=== PATIENT | male | born 1935 | race Caucasian/White ===

== ENCOUNTER → 2017-02-23 | Outpatient (CLI) | payer MEDICARE, BC ==
[2017-02-23 10:40] LABS: CH 33.4; CHCM 33.2; HCT 41.7 % (39.0-53.0); MCH 33.9 pg (25.0-35.0); MCHC 33.5 g/dL (31.0-37.0); MCV 101.2 fL (80.0-100.0); Mean Platelet Volume 7.2; RBC 4.12 m/uL (4.30-5.90); WBC 4.7 k/uL (3.8-10.6)
--- NOTE | 2017-02-23 10:41 | XR ---
EXAMINATION TYPE: XR chest 2V DATE OF EXAM: 02/23/2017 COMPARISON: NONE TECHNIQUE: PA and lateral views submitted. HISTORY: Wellness check, dysrhythmia FINDINGS: The lungs are clear and there is no pneumothorax, pleural effusion, or focal pneumonia. 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 Atherosclerotic change aorta and degenerative change spine. Hyperinflation suggests COPD. Borderline cardiomegaly. No overt failure. IMPRESSION: 1. Correlate for COPD 2. Borderline cardiomegaly.
[2017-02-23 10:43] LABS: Appearance,Urine Clear (Clear); Bilirubin,Urine Negative (Negative); Glucose,Urine (UA) Negative (Negative); Ketones,Urine Negative (Negative); Leukocyte Esterase,Urine Negative (Negative); Nitrite,Urine Negative (Negative); Protein,Urine Negative (Negative); Specific Gravity,Urine 1.013 (1.001-1.035); UA Billing (MACRO vs. MICRO) CHEM; Urobilinogen,Urine <2.0 mg/dL (<2.0)
[2017-02-23 11:58] LABS: Hemoglobin A1C 5.5 % (4.2-6.1)
[2017-02-23 12:33] LABS: ALT 44 U/L (21-72); AST 29 U/L (17-59); Alkaline Phosphatase 74 U/L (38-126); Anion Gap 9 mmol/L; Blood Urea Nitrogen 19 mg/dL (9-20); Calcium 9.5 mg/dL (8.4-10.2); Carbon Dioxide 27 mmol/L (22-30); Chloride 104 mmol/L (98-107); Cholesterol 97 mg/dL (<200); Glucose 112 mg/dL (74-99); HDL Cholesterol 44 mg/dL (40-60); Non-African American GFR(MDRD) >60 (>60 ml/min/1.73 sqM); Potassium 4.8 mmol/L (3.5-5.1); Sodium 140 mmol/L (137-145); Total Bilirubin 0.9 mg/dL (0.2-1.3); Total Protein 6.5 g/dL (6.3-8.2); Uric Acid 8.4 mg/dL (3.5-8.5)
[2017-02-23 12:59] LABS: Prostate Specific Antigen 0.94 ng/mL (0.00-4.00)
== END | disposition home or self-care (01) ==
LOC: LABWHC1 10:12
PROVIDERS: ATTEND Internal Medicine
DX: I11.9 Hypertensive heart disease without heart failure (principal); E78.2 Mixed hyperlipidemia; I25.10 Atherosclerotic heart disease of native coronary artery without angina pectoris; N40.0 Benign prostatic hyperplasia without lower urinary tract symptoms; K21.0 Gastro-esophageal reflux disease with esophagitis; M10.9 Gout, unspecified; R73.9 Hyperglycemia, unspecified; Z00.00 Encounter for general adult medical examination without abnormal findings
CPT/HCPCS: 36415; 71020; 80053; 80061; 81003; 82272; 83036; 84153; 84439; 84443; 84550; 85027

== ENCOUNTER → 2017-11-21 | Outpatient (CLI) | payer MEDICARE, BC ==
[2017-11-21 13:41] LABS: ALT 36 U/L (21-72); AST 32 U/L (17-59); Alkaline Phosphatase 75 U/L (38-126); Creatine Kinase 177 U/L (55-170)
== END | disposition home or self-care (01) ==
LOC: LABWHC1 13:01
PROVIDERS: ATTEND Internal Medicine
DX: R94.5 Abnormal results of liver function studies (principal); R74.9 Abnormal serum enzyme level, unspecified
CPT/HCPCS: 36415; 82550; 84075; 84450; 84460

== ENCOUNTER → 2018-07-24 | Outpatient (CLI) | payer MEDICARE, BC ==
[2018-07-24 17:49] LABS: ALT 22 U/L (10-49); AST 28 U/L (14-35); Alkaline Phosphatase 66 U/L (41-126)
== END ==
LOC: LABWHC1 11:07
PROVIDERS: ATTEND Internal Medicine
DX: R74.9 Abnormal serum enzyme level, unspecified (principal)
CPT/HCPCS: 36415; 84075; 84450; 84460

== ENCOUNTER → 2018-10-10 | Outpatient (CLI) | payer MEDICARE, BC ==
[2018-10-10 11:37] LABS: HCT 43.6 % (39.0-53.0); HGB 14.2 gm/dL (13.0-17.5); MCH 32.9 pg (25.0-35.0); MCHC 32.4 g/dL (31.0-37.0); MCV 101.6 fL (80.0-100.0); Macrocytosis Slight; Mean Platelet Volume 7.7; Platelet Count 182 k/uL (150-450); RDW 14.3 % (11.5-15.5); WBC 4.9 k/uL (3.8-10.6)
[2018-10-10 16:58] LABS: Albumin 4.6 g/dL (3.80-4.90); Albumin/Globulin Ratio 2.3 (1.60-3.17); Anion Gap 8.8 mmol/L (4.00-12.00); Calcium 9.9 mg/dL (8.7-10.3); Carbon Dioxide 28.2 mmol/L (21.6-31.8); Potassium 4.6 mmol/L (3.5-5.5); Total Protein 6.6 g/dL (6.2-8.2)
[2018-10-10 17:06] LABS: T4, Free (Free Thyroxine) 1.1 ng/dL (0.80-1.80)
[2018-10-10 18:07] LABS: Hemoglobin A1C 5.6 % (4.0-6.0)
== END ==
LOC: LABWHC1 10:50
PROVIDERS: ATTEND Internal Medicine
DX: Z00.00 Encounter for general adult medical examination without abnormal findings (principal); I25.10 Atherosclerotic heart disease of native coronary artery without angina pectoris; K21.0 Gastro-esophageal reflux disease with esophagitis; N40.0 Benign prostatic hyperplasia without lower urinary tract symptoms; E78.2 Mixed hyperlipidemia; R73.9 Hyperglycemia, unspecified
CPT/HCPCS: 36415; 80053; 80061; 82272; 83036; 84153; 84439; 84443; 85027

== ENCOUNTER → 2019-04-23 | Outpatient (CLI) | payer MEDICARE, BC | END | disposition home or self-care (01) | LOC: LABPAT 14:16 | PROVIDERS: ATTEND Internal Medicine | DX: Z01.812 Encounter for preprocedural laboratory examination (principal) | CPT/HCPCS: 87070 ==

== ENCOUNTER 2019-05-08 10:58 | Inpatient (IN) | payer MEDICARE, BC ==
[2019-05-03 14:56] VITALS: BMI 27.3
[~2019-05-08 10:58] MED LIST: ACETAMINOPHEN TAB 500 MG TAB PO ONE; GABAPENTIN 300 MG CAP PO ONE; HYDROmorphone 0.5 MG/0.5 ML SYRINGE IVP PRN; LACTATED RINGERS 1,000 ML IV SCH; LIDOCAINE 1% 20 ML VIAL (10MG/ML) FOR IV START INTRADERMA PRN; MELOXICAM 7.5 MG TAB PO ONE; ONDANSETRON 4 MG/2 ML VIAL IVP ONE; ROPIVACAINE 246.25 MG, EPINEPHrine 0.5 MG, KETOROLAC 30 MG, cloNIDine HCL/PF 80 MCG, WA... MISCELLANE ONE; TRANEXAMIC ACID 1,000 MG in SODIUM CHLORIDE 0.9% 100 ML IVPB ONE
[2019-05-08] MEDS ORDERED: LACTATED RINGERS 1,000 ML IV ONE ×2 (11:48→14:18)
[2019-05-08] MEDS ORDERED: DEXAMETHASONE SOD PHOSPHATE 10 MG/ML 1 ML VIAL IV ONE (12:00)
[2019-05-08 12:02] LABS: INR 1.1 (<1.2); Prothrombin Time 11.2 sec (9.0-12.0)
[2019-05-08] MEDS ORDERED: TRANEXAMIC ACID 1,000 MG/10 ML VIAL ONE (12:25)
[2019-05-08] MEDS ORDERED: GLYCOPYRROLATE 0.2 MG/ML 2 ML VIAL ONE (12:25)
[2019-05-08] MEDS ORDERED: LIDOCAINE 1% INJ 10MG/ML (20 ML MDV) ONE (12:25)
[2019-05-08] MEDS ORDERED: MORPHINE SULFATE (PF) 0.3 MG/0.3 ML SYR ONE (12:25)
[2019-05-08] MEDS ORDERED: ePHEDrine SULFATE/0.9% NACL/PF 50 MG/5 ML SYRINGE IV ONE (12:25)
[2019-05-08] MEDS ORDERED: SODIUM CHLORIDE 0.9% 100 ML BAG ONE (12:25)
[2019-05-08] MEDS ORDERED: MIDAZOLAM 2 MG/2 ML VIAL ONE (12:25)
[2019-05-08] MEDS ORDERED: fentaNYL (PF) 50 MCG/ML 2 ML AMP ONE (12:25)
[2019-05-08] MEDS ORDERED: PROPOFOL 10 MG/ML 20 ML VIAL IV ONE (12:25)
[2019-05-08] MEDS ORDERED: traMADol 50 MG TAB PO PRN (12:38)
[2019-05-08] MEDS ORDERED: NA PHOS,M-B/NA PHOS,DI-BA 133 ML ENEMA RECTAL PRN (12:38)
[2019-05-08] MEDS ORDERED: HYDROcodone/APAP 5-325MG 1 EACH TAB PO PRN (12:38)
[2019-05-08] MEDS ORDERED: MAGNESIUM HYDROXIDE 2,400 MG/10 ML CUP PO PRN (12:38)
[2019-05-08] MEDS ORDERED: DIAZEPAM 5 MG TAB PO PRN (12:38)
[2019-05-08] MEDS ORDERED: TEMAZEPAM 15 MG CAP PO PRN (12:38)
[2019-05-08] MEDS ORDERED: hydrOXYzine PAMOATE 25 MG CAP PO PRN (12:38)
[2019-05-08] MEDS ORDERED: ONDANSETRON 4 MG/2 ML VIAL IVP PRN (12:38)
[2019-05-08] MEDS ORDERED: HYDROmorphone 0.5 MG/0.5 ML SYRINGE IVP PRN ×3 (12:38)
[2019-05-08] MEDS ORDERED: HYDROcodone/APAP 10-325MG 1 EACH TAB PO PRN (12:38)
[2019-05-08] MEDS ORDERED: BISACODYL 10 MG SUPP RECTAL PRN (12:38)
[2019-05-08] MEDS ORDERED: NALOXONE 0.4 MG/ML 1 ML VIAL IV PRN ×2 (12:38→15:09)
[2019-05-08] MEDS ORDERED: ceFAZolin 3,000 MG in SODIUM CHLORIDE 0.9% IRRIGATIO 3,000 ML IRRIGATION ONE (13:13)
--- NOTE | 2019-05-08 15:03 | XR ---
EXAMINATION TYPE: XR knee limited LT DATE OF EXAM: 05/08/2019 CLINICAL HISTORY: Left knee pain and arthritis status post total knee replacement. TECHNIQUE: Portable AP and crosstable lateral views of the left knee are obtained immediately postop eratively. COMPARISON: None FINDINGS: Metallic hardware from total left knee arthroplasty is seen and appears satisfactory in al ignment and position. There is evidence of recent surgery with diffuse soft tissue swelling and subc utaneous emphysema noted. IMPRESSION: METALLIC HARDWARE FROM TOTAL LEFT KNEE ARTHROPLASTY IS SATISFACTORY IN ALIGNMENT.
[2019-05-08] MEDS: LACTATED RINGERS 1,000 ML IV SCH (15:55)
[2019-05-08 17:07] LABS: Albumin 3.9 g/dL (3.5-5.0); Calcium 9.3 mg/dL (8.4-10.2); Potassium 5.2 mmol/L (3.5-5.1); Total Bilirubin 0.8 mg/dL (0.2-1.3); Total Protein 6.5 g/dL (6.3-8.2)
[2019-05-08 17:08] LABS: Basophils % (A) 0 %; Eosinophils % (A) 0 %; HCT 42.1 % (39.0-53.0); HGB 13.4 gm/dL (13.0-17.5); Lymphocytes # (A) 0.5 k/uL (1.0-4.8); Lymphocytes % (A) 11 %; MCH 32.7 pg (25.0-35.0); MCHC 31.7 g/dL (31.0-37.0); MCV 103.1 fL (80.0-100.0); Macrocytosis Slight; Mean Platelet Volume 7.4; Monocytes # (A) 0.1 k/uL (0-1.0); Monocytes % (A) 3 %; Neutrophils % (A) 85 %; Platelet Count 159 k/uL (150-450); RBC 4.09 m/uL (4.30-5.90); RDW 12.9 % (11.5-15.5); WBC 4.8 k/uL (3.8-10.6)
--- NOTE | 2019-05-08 20:59 | OP ---
OPERATIVE REPORT PROCEDURE: 05/08/2019 SURGEON: Zuhair Dailey M.D. JAVA XML DEVELOPER: Elton BEVERLY. PREOPERATIVE DIAGNOSIS: Left knee osteoarthrosis. POSTOP DIAGNOSIS: Left knee osteoarthrosis. OPERATION PERFORMED: Left total knee arthroplasty. ANESTHESIA: Spinal with sedation. ESTIMATED BLOOD LOSS: 100 mL. TOURNIQUET TIME: 50 minutes at 250 mmHg. COMPLICATIONS: None apparent. DRAINS: None. DISPOSITION: Postanesthesia care unit. 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 History and physical examination are consistent with advanced left knee osteoarthrosis. He has been through significant nonoperative management up to this point. Further treatment options were discussed and he decided to go forward with a left total knee arthroplasty. The risks of procedure were discussed with him in detail. These risks include, but are not limited to risk of infection, nerve damage, bleeding, pain, and a small risk of deep vein thrombosis which could lead to fatal pulmonary embolism. There is also risk of loosening of the implant which could require revision operation. The patient understands these risks. All of his questions were answered to his satisfaction. An appropriate informed consent was obtained. DESCRIPTION OF PROCEDURE: The patient was identified in the preoperative holding area. Surgical site was marked by both the patient and myself. He was given 2 g of Ancef IV for prophylactic purposes. He was then transferred to the operative suite. He was placed supine on the operative table. Spinal anesthetic was then administered and dosed per the anesthesia without apparent complication. Examination under anesthesia was then performed. The patient was 2-3 degrees shy of full extension. He had 100 degrees of flexion. The medial collateral ligament, lateral collateral ligament and posterior cruciate ligaments were stable. Tourniquet was then placed high on the left upper thigh, well-padded in preparation. REASON FOR SURGERY: The patient's left lower extremity was then prepped and draped in usual sterile fashion. Standard surgical pause was undertaken to ensure that we were operating on the correct site and that appropriate preoperative antibiotics were given. All staff in the room in agreement and we proceeded. The outlines of the patella were marked with a surgical pen. A planned 12 cm vertical incision centered over the patella was marked surgical pen. Leg was then exsanguinated with an Esmarch dressing. The knee was then flexed and the tourniquet was inflated to 250 mmHg. Total tourniquet time for the procedure was 50 minutes. Incision was then made with a 10 blade scalpel. Dissection carried down sharply to the overlying fascia. Great care was taken to minimize the skin flaps. The knee was then exposed using a standard medial parapatellar approach. A small cuff of quadriceps tendon was then left for suturing. He was in a bit of varus preoperatively. A standard medial release was then made. The superficial medial collateral ligament was dissected off the bone around the posterior aspect of the proximal tibia. The medial meniscus was then excised as well. The lateral meniscus was also released anteriorly. The leg was then externally rotated. The patella was everted. The knee was flexed. The retractors were then placed to protect the collateral ligaments. I then proceeded to remove the infrapatellar fat pad. This was excised sharply tangentially with the fibers of the patellar tendon. I then proceeded to remove peripheral osteophytes. This was done with a rongeur. I then proceeded with distal femoral resection. He did have a small flexion contracture. A planned 11 mm resection was then done. The femoral canal was then entered in the midline of the femur approximately 10 mm anterior to the origin of the posterior cruciate ligament. The eneida was then advanced down the center of the femur and placed intramedullary. Based on the preoperative radiographs, the angle between the anatomic and mechanical axis of the femur was approximately 4-5 degrees. The valgus angle of the distal femoral cutting guide was then set at 4 degrees for the left knee. The distal femoral cutting guide was then advanced over the intramedullary eneida. This was seated firmly against the femur. I then as mentioned planned to take 11 mm off the distal femur. The cutting block was then secured onto the femur with pins. The jig was then removed and the distal femoral cut was made through the slot of the block. The pins were then removed. The distal femoral cutting block was removed. The accuracy of the distal femoral cuts was checked with 2 flat bars. I then proceed to femoral sizing. Posterior referencing sizing guide was held firmly against the resected distal surface of the femur. The posterior condyles were resting on the posterior plane of the guide. The sizing stylus was then placed onto the anterior femur. The size was measured as a size 11. I then assessed for femoral rotation. Plan was for 3 degrees of external rotation. Three degrees of external rotation was placed onto the jig. These holes were then marked. I then confirmed the rotation by 3 separate methods. This was done using the epicondylar axis as well as Whitesides line and posterior referencing. It was deemed that the external rotation was proper. I then went forward, placed the femoral cutting block. This was placed over the previously placed pin holes. The Brody wing was then placed on the anterior slots to ensure that we would not notch the anterior femur with the anterior femoral cut. I then proceed with the anterior femoral cut. This was flush with the anterior cortex of the femur. Posterior cuts were then made followed by the anterior chamfer cut, then the posterior chamfer cut. The cutting block was then removed. Throughout the resection, the collateral ligaments were protected with retractors. I then placed a trial size 11 femur. It fit very nicely medial-lateral and fit flush with the distal end of the femur. The drill holes were then made. I then proceed with the tibial cut. I planned for cruciate retaining knee. The guide was placed and set for varus valgus and for slope. The height was set for approximate 2 mm resection from the medial tibial plateau which was the lower side. I was happy with the alignment and amount of resection. The cutting block was then pinned to the proximal tibia. The alignment eneida was removed. The proximal tibia was resected with a reciprocating saw. Again this was done with retractors protecting the collateral ligaments as well as the posterior cruciate ligament. I then proceeded to evaluate the flexion and extension gaps. A 10 mm block was then placed. The flexion-extension gaps were equal. I then proceed resection of posterior osteophytes. He had very minimal posterior osteophytes. This was done using a curved osteotome. This resected the posterior osteophytes and posterior capsule stripping was also done off the posterior aspect of osteophytes were then removed. I then proceeded with resection of patella. The thickness of patella was measured using a caliper. The thickness was 22 mm. The thickness of the anticipated patellar dome was taken into account. The resection was then performed and confirmed to be equal in 4 quadrants using a caliper. Approximately 14 mm of bone remained after resection. A 35 x 9 mm standard patellar trial was then placed. The holes were drilled. The trial was then placed. I then proceeded with sizing tibial plate. A size G tibial plate fit very nicely. I then placed the trial femur, the tibial tray and patellar button. A 10 mm trial tibial insert was also placed. The components fit very nicely. He had full extension and flexion. The extension and flexion gaps were equal and stable to both varus and valgus stress. The patella tracked appropriately. The tibial tray rotation was marked with a Bovie. This was externally rotated properly. I then proceeded with tibial preparation. I first drilled the femoral holes. Removed the femoral component. The tibial tray was then set for proper external rotation as well as mediolateral placement onto the tibia. It was then pinned into place. I then proceeded with punching the keel. I then decided to proceed with cementing of all our components. The knee was thoroughly irrigated with sterile saline solution via pulse lavage. The lateral geniculate artery was identified and cauterized. All blood was removed from the bone of the tibia femur and patella with pulse lavage. I then proceed with cementing. Two packs of antibiotic bone cement was prepared on the back table by the neurosurgical physician assistant. I then proceed with cementing the tibia first. The cement was impacted in the keel as well as deeply seated in the bone. A second coat cement was then placed. The tibia was then impacted into place. Excess cement was removed with Imbler's and Joker's. I then proceed with cementing the femoral component. The femoral component was also cemented using standard technique. Excess cement was removed. A 10 mm trial insert was then placed into the knee. It was brought into full extension with a constant axial load placed until the cement had hardened. The patellar component was then cemented. This was held firmly with a compressive device until the cement had dried. When the cement had dried, the knee was taken out of extension. All excess cement was removed from around the prosthesis. I then trialed the knee with a 10 mm insert. Flexion extension gaps were appropriate. I then trialed with a 12 mm insert. The flexion-extension gaps felt much better. The knee was stable with a 12 mm insert. Came into full extension. I decided to go forward with a 12 mm cross-linked cruciate- retaining tibial insert. Polyethylene was then placed onto the tibial tray and locked into place. The knee was then reduced. The knee was again further irrigated with sterile saline solution with antibiotic added. The tourniquet was then deflated. The total tourniquet time for the procedure was 50 minutes at 250 mmHg. Final components were Rene Persona size 11 cruciate-retaining femoral component, a size G tibial tray, a 12 mm medial congruent cruciate-retaining polyethylene insert and a 35 x 9 mm patella. I then proceeded with closure. Again, the knee was thoroughly irrigated. The quadriceps tendon and medial retinaculum were reapproximated with #2 Ethibond suture. The extensor mechanism was then closed with a running #2 Quill suture. Subcutaneous tissues were closed with 2-0 Vicryl interrupted suture. The skin was closed with a running 3-0 Quill suture. Dermabond was applied to the incision. Sterile compressive dressing was then applied. All sponge and needle counts were deemed correct prior to closure. The patient tolerated procedure without apparent complication. He was transferred to the recovery room in stable condition. MMANETA / MARIA LUISAN: [id number] /
[2019-05-08] MEDS ORDERED: ENALAPRIL 2.5 MG PO SCH (21:00)
[2019-05-08] MEDS: ATORVASTATIN 40 MG TAB PO SCH (21:45)
[2019-05-08] MEDS: ALLOPURINOL 300 MG TAB PO SCH (21:45)
[2019-05-08] MEDS: ASPIRIN 325 MG TAB PO SCH (21:45)
[2019-05-08] MEDS: SENNOSIDES-DOCUSATE SODIUM 1 EACH TAB PO SCH (21:51)
[2019-05-09] MEDS: LACTATED RINGERS 1,000 ML IV SCH ×2 (04:14→17:34)
--- NOTE | 2019-05-09 07:07 | P.PN ---
Progress Note - Text Progress Note Date: 05/09/19 Patient was given intrathecal Duramorph on 05/08/2019 for left total knee re placement. This morning, vital signs are stable. The patient does endorse some urinary retention. The patient denies itching, nausea, vomiting, excessive sedation, respiratory depression, or headache. Patient also denies new-onset fever, weakness, or bowel/bladder incontinence. His pain score is: 0 Pain medications per primary service; please call back with any further questions. Eulalia Rbuio MD
[2019-05-09 07:31] LABS: Basophils % (A) 0 %; Eosinophils % (A) 0 %; HCT 40.1 % (39.0-53.0); Lymphocytes # (A) 1.4 k/uL (1.0-4.8); Lymphocytes % (A) 9 %; MCH 33.2 pg (25.0-35.0); MCHC 32.5 g/dL (31.0-37.0); Macrocytosis Slight; Mean Platelet Volume 7.5; Monocytes # (A) 0.7 k/uL (0-1.0); Monocytes % (A) 5 %; Neutrophils # (A) 12.4 k/uL (1.3-7.7); Neutrophils % (A) 84 %; Platelet Count 173 k/uL (150-450); RBC 3.93 m/uL (4.30-5.90); RDW 12.9 % (11.5-15.5); WBC 14.7 k/uL (3.8-10.6)
[2019-05-09] MEDS: ASPIRIN 325 MG TAB PO SCH ×2 (07:35→20:12)
[2019-05-09] MEDS: MULTIVITAMINS, THERA 1 EACH TAB PO SCH (07:35)
[2019-05-09 07:40] LABS: Albumin 3.9 g/dL (3.5-5.0); Calcium 9.4 mg/dL (8.4-10.2); Potassium 4.7 mmol/L (3.5-5.1); Total Protein 6.5 g/dL (6.3-8.2)
[2019-05-09] MEDS ORDERED: TAMSULOSIN 0.4 MG CAP.ER.24H PO STA (09:25)
--- NOTE | 2019-05-09 09:37 | P.DS ---
Providers Expected date of discharge: 05/09/19 Attending physician: Zuhair Dailey Consults: 05/08/19 12:38 Consult Physician Routine Consulting Provider: Sergo Rae Consult Reason/Comments: post op medical management Do you want consulting provider notified?: Yes Primary care physician: Reese Martinez Balboa - Discharge Diagnosis(es) (1) S/P total knee replacement Patient was admitted to the OR on 05/08/2019 to undergo a left total knee arthroplasty. He had failed conservative measures as an outpatient and desired to proceed with elective surgery after given informed consent. He underwent the above procedure which he tolerated well without complication. Postoperative hospital course has remained without complication. On day of discharge he is afebrile, vital signs stable, labs within acceptable ranges, tolerating by mouth meds and diet, voiding without difficulty, positive flatus, denies abdominal pain or calf pain, pain is controlled on oral pain medication and has no new complaints. Wound is benign, neurovascular status is intact, calf is soft and nontender, abdomen soft and nontender. Review of systems is negative for numbness, tingling, fever, chills, chest pain, shortness of breath, nausea, vomiting, dizziness, headaches, slurred speech or other. Current Visit: Yes Status: Acute Priority: Medium Procedures: Left TKA Patient Condition at Discharge: Good Plan - Discharge Summary Discharge Rx Participant: Yes New Discharge Prescriptions: New Aspirin 325 mg PO BID #60 tab Docusate [Colace] 100 mg PO BID #60 capsule HYDROcodone/APAP 7.5-325MG [[place] 7.5-325] 1 - 2 each PO Q6HR PRN #56 tab PRN Reason: Pain No Action Enalapril [Vasotec] 2.5 mg PO HS Aspirin 81 mg PO HS Atorvastatin [Lipitor] 40 mg PO HS Allopurinol [Zyloprim] 150 mg PO HS Discharge Medication List Allopurinol [Zyloprim] 150 mg PO HS 05/03/19 [History] Aspirin 81 mg PO HS 05/03/19 [History] Atorvastatin [Lipitor] 40 mg PO HS 05/03/19 [History] Enalapril [Vasotec] 2.5 mg PO HS 05/03/19 [History] Aspirin 325 mg PO BID #60 tab 05/09/19 [Rx] Docusate [Colace] 100 mg PO BID #60 capsule 05/09/19 [Rx] HYDROcodone/APAP 7.5-325MG [[place] 7.5-325] 1 - 2 each PO Q6HR PRN #56 tab 05/09/19 [Rx] Follow up Appointment(s)/Referral(s): Zuhair Dailey MD [STAFF PHYSICIAN] - 10 Days Activity/Diet/Wound Care/Special Instructions: Keep wound clean and dry Take meds as directed Follow-up with Dr. Dailey in office Weight bear as tolerated May shower in 3 days if no bleeding Discharge Disposition: HOME WITH HOME HEALTH SERVICES
[2019-05-09] MEDS: SODIUM CHLORIDE 0.9% 1,000 ML IV SCH (11:12)
--- NOTE | 2019-05-09 12:14 | P.CONS ---
History of Present Illness - Reason for Consult Consult date: 05/09/19 - History of Present Illness This is an 83-year-old male patient of Dr. Barrios. On 05/08/2019 patient underwent an elective left total knee arthroplasty after failing conservative measures as outpatient. This morning patient is sitting up at the bedside resting comfortably, denies any pain. He is ambulating with minimal assistance. Postoperatively, patient was noted to have asymptomatic bradycardia in the 30s, however, overnight heart rate has been within normal limits 60s to 90s. Patient reports having known heart block in which he follows up with Dr. Murphy. No dizziness or lightheadedness noted . Patient denies chest pain or shortness of breath. Denies cough. Denies nausea, vomiting, diarrhea. Additionally, patient urinary retention postoperatively when he needed to be straight cath this morning for 700ml. Creatinine 1.48 from 1.29. WBC 14.7 from 4.8. We'll send a UA and continue to monitor for spontaneous voiding. Other past medical history includes coronary artery disease, heart cath with stents placed approximately 2013, second-degree AV block, hyperlipidemia, essential hypertension, gout. Review of Systems Please refer to HPI otherwise unremarkable Past Medical History Past Medical History: Coronary Artery Disease (CAD) Additional Past Medical History / Comment(s): states "hx heart block" History of Any Multi-Drug Resistant Organisms: None Reported Past Surgical History: Heart Catheterization With Stent Additional Past Surgical History / Comment(s): Stovall's neuroma,varicose veins removed Past Anesthesia/Blood Transfusion Reactions: No Reported Reaction Date of Last Stent Placement:: "2013" Past Psychological History: No Psychological Hx Reported Smoking Status: Never smoker Past Alcohol Use History: Occasional Past Drug Use History: None Reported - Past Family History Brother(s) Family Medical History: Cancer Sister(s) Family Medical History: Cancer Medications and Allergies Home Medications Medication Instructions Recorded Confirmed Type Allopurinol [Zyloprim] 150 mg PO HS 05/03/19 05/08/19 History Aspirin 81 mg PO HS 05/03/19 05/08/19 History Atorvastatin [Lipitor] 40 mg PO HS 05/03/19 05/08/19 History Enalapril [Vasotec] 2.5 mg PO HS 05/03/19 05/08/19 History Aspirin 325 mg PO BID #60 tab 05/09/19 Rx Docusate [Colace] 100 mg PO BID #60 capsule 05/09/19 Rx HYDROcodone/APAP 7.5-325MG [[place] 1 - 2 each PO Q6HR PRN #56 tab 05/09/19 Rx 7.5-325] Allergies Allergy/AdvReac Type Severity Reaction Status Date / Time No Known Allergies Allergy Verified 05/08/19 11:25 Physical Exam Vitals: Vital Signs Temp Pulse Pulse Resp BP BP Pulse Ox 05/09/19 07:00 97.4 F L 90 12 121/80 96 05/09/19 05:01 16 05/09/19 02:40 98.4 F 67 118/45 93 L 05/08/19 19:05 98.3 F 51 L 110/67 96 05/08/19 17:25 42 L 121/50 94 L 05/08/19 17:10 33 L 118/52 90 L 05/08/19 16:55 42 L 80/53 95 05/08/19 16:40 34 L 111/52 05/08/19 16:25 36 L 103/95 96 05/08/19 16:10 36 L 104/59 95 05/08/19 15:55 38 L 110/56 96 05/08/19 15:40 97.5 F L 42 L 16 109/56 97 05/08/19 15:16 38 L 16 105/55 99 05/08/19 15:02 35 L 16 103/54 99 05/08/19 14:45 41 L 14 97/53 97 05/08/19 14:34 97.1 F L 43 L 14 95/53 94 L Intake and Output 05/08/19 05/09/19 05/09/19 22:59 06:59 14:59 Intake Total 680 480 Output Total 700 Balance 680 -220 Intake: IV 0 Oral 680 480 Output: Urine 700 Straight 700 Other: Voiding Method Toilet # Voids 1 1 Head normocephalic Neck supple Lungs clear to auscultation bilaterally no wheezing or crackles Heart regular rate and rhythm S1-S2, no rub or gallop Abdomen is soft nontender nondistended positive bowel sounds no hepatosplenomegaly Extremities no edema Surgical incision of left knee clean dry and intact, no swelling or ecchymosis noted Neuro alert and orientated to 3 Results CBC & Chem 7: 05/09/19 06:55 11/07/19 06:55 Labs: Abnormal Lab Results - Last 24 Hours (Table) 05/08/19 05/08/19 05/09/19 Range/Units 16:20 16:20 06:55 WBC 14.7 H (3.8-10.6) k/uL RBC 4.09 L 3.93 L (4.30-5.90) m/uL MCV 103.1 H 102.0 H (80.0-100.0) fL Neutrophils # 12.4 H (1.3-7.7) k/uL Lymphocytes # 0.5 L (1.0-4.8) k/uL Potassium 5.2 H (3.5-5.1) mmol/L BUN (9-20) mg/dL Creatinine 1.29 H (0.66-1.25) mg/dL Glucose 140 H (74-99) mg/dL 05/09/19 Range/Units 06:55 WBC (3.8-10.6) k/uL RBC (4.30-5.90) m/uL MCV (80.0-100.0) fL Neutrophils # (1.3-7.7) k/uL Lymphocytes # (1.0-4.8) k/uL Potassium (3.5-5.1) mmol/L BUN 22 H (9-20) mg/dL Creatinine 1.48 H (0.66-1.25) mg/dL Glucose 133 H (74-99) mg/dL Assessment and Plan Assessment: 1. Left total knee arthroplasty, anterior osteoarthritis. Elective surgery after failing conservative management outpatient. Patient denies any pain. Patient is up moving around in the room with minimal assistance. Patient will be DC'd on aspirin 325 mg twice a day for DVT prophylaxis 2. Acute urinary retention. Patient had to be straight cathed postoperatively, 700mls drained. Will add Flomax. Advise nursing staff, patient is to void prior to discharge 3. Acute kidney injury, likely secondary to urinary retention creatinine is 1.48 from 1.29. Will add normal saline at 75 mL, obtain UA. 4. Leukocytosis. WBC 14.7 from 4.8. Patient is afebrile, denies cough. Will obtain a UA. 5. Second-degree AV block with symptomatic bradycardia. Patient was seen by Dr. Murphy on 04/10/2019, per note from visit patient had completed a Holter study, stress test, carotid duplex, and ECHO (which was done in 2018, EF 55%). Patient is to follow-up with Dr. Murphy, as it was recommended he needs a pacemaker. Heart rate has been stable, 60s to 90s. 6. Essential hypertension will hold JOSE DAVID inhibitor due to bradycardia and creatinine increase 7. Hyperlipidemia maintained on statin 8. History of CAD. Cardiac cath with drug-eluting stent placement of the major diagonal branch in 2007, maintained on 81mg aspirin. 9. History of gout, continue allopurinol DVT prophylaxis aspirin 325 mg Thank you consult will continue to monitor patient closely throughout stay
[2019-05-09] MEDS: ALLOPURINOL 300 MG TAB PO SCH (20:11)
[2019-05-09] MEDS: ATORVASTATIN 40 MG TAB PO SCH (20:12)
[2019-05-09] MEDS: SENNOSIDES-DOCUSATE SODIUM 1 EACH TAB PO SCH (20:12)
[2019-05-10] MEDS: TAMSULOSIN 0.4 MG CAP.ER.24H PO SCH ×2 (00:32→07:32)
[2019-05-10] MEDS: SODIUM CHLORIDE 0.9% 1,000 ML IV SCH (00:48)
[2019-05-10] MEDS: LACTATED RINGERS 1,000 ML IV SCH (04:51)
[2019-05-10 05:49] VITALS: RESP 16
[2019-05-10] MEDS: ASPIRIN 325 MG TAB PO SCH (07:32)
[2019-05-10] MEDS: MULTIVITAMINS, THERA 1 EACH TAB PO SCH (07:32)
[2019-05-10 07:34] VITALS: BP 135/64; PULSE 55; TEMP 98.6
[2019-05-10 08:01] LABS: Albumin 3.2 g/dL (3.5-5.0); Calcium 8.6 mg/dL (8.4-10.2); Potassium 4.4 mmol/L (3.5-5.1); Total Bilirubin 1.2 mg/dL (0.2-1.3); Total Protein 5.6 g/dL (6.3-8.2)
[2019-05-10] MEDS ORDERED: TAMSULOSIN 0.4 MG CAP.ER.24H PO SCH (08:30)
[2019-05-10 08:44] LABS: Basophils # (A) 0.1 k/uL (0-0.2); Basophils % (A) 1 %; Eosinophils # (A) 0.2 k/uL (0-0.7); Eosinophils % (A) 2 %; HCT 34.5 % (39.0-53.0); HGB 11.3 gm/dL (13.0-17.5); Lymphocytes # (A) 1.1 k/uL (1.0-4.8); Lymphocytes % (A) 16 %; MCH 33.5 pg (25.0-35.0); MCHC 32.9 g/dL (31.0-37.0); MCV 101.9 fL (80.0-100.0); Macrocytosis Slight; Mean Platelet Volume 7.8; Monocytes # (A) 0.4 k/uL (0-1.0); Monocytes % (A) 6 %; Neutrophils % (A) 72 %; Platelet Count 135 k/uL (150-450); RBC 3.39 m/uL (4.30-5.90); RDW 13.1 % (11.5-15.5); WBC 6.9 k/uL (3.8-10.6)
[2019-05-10 09:53] LABS: Appearance,Urine Clear (Clear); Bilirubin,Urine Negative (Negative); Blood,Urine Moderate (Negative); Color,Urine Yellow; Glucose,Urine (UA) Negative (Negative); Ketones,Urine Negative (Negative); Leukocyte Esterase,Urine Negative (Negative); Nitrite,Urine Negative (Negative); Protein,Urine Negative (Negative); RBC,Urine 142 /hpf (0-5); Specific Gravity,Urine 1.011 (1.001-1.035); Urobilinogen,Urine <2.0 mg/dL (<2.0); WBC,Urine 2 /hpf (0-5)
--- NOTE | 2019-05-10 10:37 | P.PN ---
Subjective Progress Note Date: 05/10/19 This is an 83-year-old male patient of Dr. Barrios. On 05/08/2019 patient underwent an elective left total knee arthroplasty after failing conservative measures as outpatient. This morning patient is sitting up at the bedside resting comfortably, denies any pain. He is ambulating with minimal assistance. Postoperatively, patient was noted to have asymptomatic bradycardia in the 30s, however, overnight heart rate has been within normal limits 60s to 90s. Patient reports having known heart block in which he follows up with Dr. Murphy. No dizziness or lightheadedness noted . Patient denies chest pain or shortness of breath. Denies cough. Denies nausea, vomiting, diarrhea. Additionally, patient urinary retention postoperatively when he needed to be straight cath this morning for 700ml. Creatinine 1.48 from 1.29. WBC 14.7 from 4.8. We'll send a UA and continue to monitor for spontaneous voiding. Other past medical history includes coronary artery disease, heart cath with stents placed approximately 2013, second-degree AV block, hyperlipidemia, essential hypertension, gout. On 05/10/2018 patient is resting comfortably in bed, alert and oriented 3. Asymptomatic bradycardia related to AV heart block, heart rate 50's, blood pressure stable. He denies lightheadedness, dizziness. He denies chest pain, shortness of breath. Patient voiding spontaneously, denies any dysuria or bur gina. He voided 200ml's this morning. Postvoid residual 140ml Creatinine 1.23 down from 1.48. White count 6.9 down from 14.7. UA negative. Patient states he is ready to go home. Patient will be medically cleared for discharge. Objective - Vital Signs Vital signs: Vital Signs Temp 98.6 F 05/10/19 07:32 Pulse 55 L 05/10/19 07:32 Resp 16 05/10/19 07:32 BP 135/64 05/10/19 07:32 Pulse Ox 96 05/10/19 07:32 Intake & Output 05/09/19 05/10/19 05/10/19 18:59 06:59 18:59 Intake Total 960 Output Total 1500 2300 200 Balance -540 -2300 -200 Intake: Oral 960 Output: Urine 1500 2300 200 Straight 1500 1700 Other: Voiding Method Toilet Toilet # Voids 3 1 - Exam Head normocephalic Neck supple Lungs clear to auscultation bilaterally no wheezing or crackles Bradycardic , S1-S2, no rub or gallop Abdomen is soft nontender nondistended positive bowel sounds no hepatosplenomegaly Extremities no edema Left knee incision clean dry and intact, no ecchymosis, no swelling Neuro alert and orientated to 3 - Labs CBC & Chem 7: 05/10/19 07:16 05/10/19 07:16 Labs: Abnormal Lab Results - Last 24 Hours (Table) 05/10/19 05/10/19 05/10/19 Range/Units 07:16 07:16 08:45 RBC 3.39 L (4.30-5.90) m/uL Hgb 11.3 L (13.0-17.5) gm/dL Hct 34.5 L (39.0-53.0) % MCV 101.9 H (80.0-100.0) fL Plt Count 135 L (150-450) k/uL Glucose 110 H (74-99) mg/dL ALT 17 L (21-72) U/L Total Protein 5.6 L (6.3-8.2) g/dL Albumin 3.2 L (3.5-5.0) g/dL Urine Blood Moderate H (Negative) Urine RBC 142 H (0-5) /hpf Assessment and Plan Assessment: 1. Left total knee arthroplasty, anterior osteoarthritis. Elective surgery after failing conservative management outpatient. Patient denies any pain. Patient is up moving around in the room with minimal assistance. Patient will be DC'd on aspirin 325 mg twice a day for DVT prophylaxis. 2. Acute urinary retention. Patient had to be straight cathed postoperatively, 700mls drained. Patient is voiding spontaneously. He was able to void 200ml this morning post void residual 140ml. Will add Flomax for discharge. 3. Acute kidney injury, likely secondary to urinary retention creatinine is 1.48 from 1.29. Resolved, creatinine 1.23. 4. Leukocytosis. WBC 14.7 from 4.8. Patient is afebrile, denies cough. Resolved. WBC 6.9, UA negative. 5. Second-degree AV block with symptomatic bradycardia. Patient was seen by Dr. Murphy on 04/10/2019, per note from visit patient had completed a Holter study, stress test, carotid duplex, and ECHO (which was done in 2018, EF 55%). Patient is to follow-up with Dr. Murphy, as it was recommended he needs a pacemaker. Heart rate 40-60's. Asymptomatic bradycardia. 6. Essential hypertension. Okay to resume home medication at discharge. 7. Hyperlipidemia maintained on statin 8. History of CAD. Cardiac cath with drug-eluting stent placement of the major diagonal branch in 2007, maintained on 81mg aspirin. 9. History of gout, continue allopurinol DVT prophylaxis aspirin 325 mg Thank you consult will continue to monitor patient closely throughout stay. I performed an examination of the patient and discussed their management with the Nurse Practitioner. I have reviewed the Nurse Practitioner's notes and agree with the documented findings and plan of care
== END 2019-05-10 11:11 | disposition home health service (06) | DRG 470 ==
LOC: OR 10:58 → 4SSUR 14:59 → OR 05-10 09:19 → 4SSUR 05-10 10:42
PROVIDERS: ADMIT Orthopaedic Surgery Sports Medicine; ATTEND Orthopaedic Surgery Sports Medicine
PROC: 0SRD0J9 Replacement of Left Knee Joint with Synthetic Substitute, Cemented, Open Approach (ICD-10-PCS; principal; 2019-05-08 12:30)
DX: M17.12 Unilateral primary osteoarthritis, left knee (principal); N17.9 Acute kidney failure, unspecified; R33.9 Retention of urine, unspecified; E78.5 Hyperlipidemia, unspecified; I10 Essential (primary) hypertension; I25.10 Atherosclerotic heart disease of native coronary artery without angina pectoris; I44.1 Atrioventricular block, second degree; M10.9 Gout, unspecified; D72.829 Elevated white blood cell count, unspecified; H91.90 Unspecified hearing loss, unspecified ear; M16.12 Unilateral primary osteoarthritis, left hip; M70.61 Trochanteric bursitis, right hip; M70.52 Other bursitis of knee, left knee; M75.22 Bicipital tendinitis, left shoulder; S63.92XA Sprain of unspecified part of left wrist and hand, initial encounter; Z95.5 Presence of coronary angioplasty implant and graft; Z80.9 Family history of malignant neoplasm, unspecified; Z79.82 Long term (current) use of aspirin; Z79.899 Other long term (current) drug therapy; Z97.3 Presence of spectacles and contact lenses; Z87.891 Personal history of nicotine dependence
CPT/HCPCS: 80053; 81001; 85025; 85610; 88300

== ENCOUNTER → 2020-10-27 | Outpatient (CLI) | payer MEDICARE, BC ==
--- NOTE | 2020-10-27 14:33 | XR ---
EXAMINATION TYPE: XR hand complete RT DATE OF EXAM: 10/27/2020 COMPARISON: NONE HISTORY: pain/swelling/redness TECHNIQUE: Three views are submitted. FINDINGS: There is a tiny bony density adjacent to the base proximal phalanx first digit. There is narrowing of the MCP joints of all digits. Narrowing of the DIP joint of the first digit and first carpometacarpa l joint. Vascular calcifications are seen and there is mild narrowing of the radiocarpal joint. And t here is no acute fracture or dislocation. IMPRESSION: 1. There is a tiny bony density adjacent to the base of the proximal phalanx of the first digit. Tiny avulsion or chip fracture in the differential diagnosis. Correlate with point tenderness. 2. Arthropathy most marked involving the first MCP joint
== END | disposition home or self-care (01) ==
LOC: RADXRMAIN 14:15
PROVIDERS: ATTEND Internal Medicine
DX: M18.11 Unilateral primary osteoarthritis of first carpometacarpal joint, right hand (principal)

== ENCOUNTER → 2021-01-30 | Outpatient (CLI) | payer MEDICARE, BC ==
--- NOTE | 2021-01-30 08:41 | MR ---
MRI brain. HISTORY: Memory loss, ataxia. COMPARISON: None. TECHNIQUE: Multiecho multiplanar images the brain were obtained without contrast. FINDINGS: On the T1-weighted sagittal images midline structures including the cranial vertebral junction relati onships are normal. The ventricles, basal cisterns and sulci over the convexities are moderately enlarged consistent with moderate generalized degenerative change. There is moderate multifocal abnormal increased signal intensity in the periventricular white matter of both cerebral hemispheres consistent with chronic ischemic white matter change. 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 Based on diffusion-weighted imaging, there is no acute ischemic event. The posterior fossa including the brainstem, fourth ventricle and cerebellar pontine angles are hugo l. The intraorbital contents appear normal and symmetric. Visualized paranasal sinuses and mastoid air c ells are well aerated. IMPRESSION: 1. Moderate generalized atrophy. 2. Moderate chronic ischemic white matter changes. 3. No acute ischemic event. 4. No mass, mass effect or shift of the midline structures.
== END | disposition home or self-care (01) ==
LOC: RADMRIMAIN 07:37
PROVIDERS: ATTEND Psychiatry & Neurology Neurology
DX: G31.9 Degenerative disease of nervous system, unspecified (principal); I67.82 Cerebral ischemia
CPT/HCPCS: 70551

== ENCOUNTER 2021-10-03 16:40 | Inpatient (IN) | payer MEDICARE, BC ==
[2021-10-03 16:51] VITALS: RESP 18; TEMP 98.7
[2021-10-03] MEDS ORDERED: SODIUM CHLORIDE 0.9% 1,000 ML IV STA (17:09)
[2021-10-03 18:14] LABS: Basophils % (A) 0 %; Eosinophils % (A) 0 %; HGB 13.1 gm/dL (13.0-17.5); Lymphocytes # (A) 1.1 k/uL (1.0-4.8); Lymphocytes % (A) 9 %; MCHC 32.8 g/dL (31.0-37.0); MCV 103.6 fL (80.0-100.0); Macrocytosis Slight; Mean Platelet Volume 8.8; Monocytes # (A) 0.6 k/uL (0-1.0); Monocytes % (A) 5 %; Neutrophils # (A) 10.2 k/uL (1.3-7.7); Neutrophils % (A) 84 %; Platelet Count 117 k/uL (150-450); RBC 3.86 m/uL (4.30-5.90); RDW 13.4 % (11.5-15.5); WBC 12.1 k/uL (3.8-10.6)
[2021-10-03 18:23] LABS: Appearance,Urine Cloudy (Clear); Bacteria,Urine Rare /hpf; Bilirubin,Urine Negative (Negative); Blood,Urine Trace (Negative); Color,Urine Yellow; Glucose,Urine (UA) Negative (Negative); Ketones,Urine Negative (Negative); Leukocyte Esterase,Urine Large (Negative); Mucus,Urine Few /hpf; Nitrite,Urine Negative (Negative); Partial Thromboplastin Time 25.3 sec (22.0-30.0); Protein,Urine 1+ (Negative); Prothrombin Time 10.9 sec (9.0-12.0); RBC,Urine 6 /hpf (0-5); Urobilinogen,Urine <2.0 mg/dL (<2.0); WBC,Urine >182 /hpf (0-5)
[2021-10-03 18:25] LABS: Albumin 3.9 g/dL (3.5-5.0); Calcium 8.9 mg/dL (8.4-10.2); Total Protein 6.8 g/dL (6.3-8.2)
--- NOTE | 2021-10-03 18:37 | XR ---
EXAMINATION TYPE: XR chest 2V DATE OF EXAM: 10/03/2021 6:21 PM COMPARISON:Chest radiographs from 02/23/2017 TECHNIQUE: XR chest 2V Frontal and lateral views of the chest. CLINICAL INDICATION:Male, 86 years old with history of Cough/pain; FINDINGS: Lungs/Pleura: There is no evidence of pleural effusion, focal consolidation, or pneumothorax. Pulmonary vascularity: Unremarkable. Heart/mediastinum: Cardiomediastinal silhouette is enlarged. Opacity projecting over the heart likely representing a hiatal hernia. Musculoskeletal: No acute osseous pathology. IMPRESSION: 1. No acute cardiopulmonary disease/process. 2. Mild cardiomegaly 3. Suspected hiatal hernia.
[2021-10-03] MEDS ORDERED: LEVOFLOXACIN 750MG-D5W PMX 750 MG in DEXTROSE/WATER 1 150ML.BAG IVPB STA (18:48)
--- NOTE | 2021-10-03 20:01 | CT ---
EXAMINATION TYPE: CT abdomen pelvis w con CT DLP: 1078.8 mGycm, Automated exposure control for dose reduction was used. DATE OF EXAM: 10/03/2021 7:51 PM COMPARISON: None. CLINICAL INDICATION:Male, 86 years old with history of fever; fever, weakness TECHNIQUE: Standard CT of the abdomen and pelvis following the administration of 100 cc of Isovue 3 00 IV contrast material. Coronal and sagittal reformats were performed. FINDINGS: LOWER CHEST: Trace left pleural effusion. There is aortic valve leaflet calcifications and coronary a rtery atherosclerosis partially visualized. ABDOMEN LIVER: Unremarkable GALLBLADDER AND BILE DUCTS: Layering increased densities within the lumen consistent with gallstones are present. PANCREAS: Unremarkable. SPLEEN: Scattered calcified granulomas. Splenule is present. ADRENAL GLANDS: Unremarkable. KIDNEYS AND URETERS: No evidence of hydronephrosis or renal calculus. The ureters are unremarkable. Right 13 mm renal cyst. There is a focal right renal thinning likely from prior injury. PELVIS BLADDER: Mild circumferential wall thickening measuring 4 mm. REPRODUCTIVE: Unremarkable. ABDOMEN & PELVIS STOMACH AND BOWEL: Scattered clonic diverticula are present. No evidence of bowel obstruction. PERITONEUM: No evidence of pneumoperitoneum or free fluid. VASCULATURE: Moderate atherosclerotic calcifications are present throughout the abdominal aorta and i ts branches MUSCULOSKELETAL: Moderate disc degeneration changes are present throughout the thoracolumbar spine. LYMPH NODES: No gross evidence for lymphadenopathy. SOFT TISSUE/ABDOMINAL WALL: Unremarkable IMPRESSION: 1. No evidence of infectious process within the abdomen or pelvis. 2. Cholelithiasis. 3. Colonic diverticulosis. 4. Bladder wall circumferential thickening could be due to underdistention correlate with urinalysis for cystitis.
[2021-10-03] MEDS ORDERED: ASPIRIN 81 MG PO STA (20:40)
[2021-10-03] MEDS ORDERED: NALOXONE 0.4 MG/ML 1 ML VIAL IV PRN (20:51)
--- NOTE | 2021-10-03 20:51 | ED ---
General Adult HPI - General Chief complaint: Nausea/Vomiting/Diarrhea Stated complaint: Weakness,Fatigue,N/V Time Seen by Provider: 10/03/21 16:45 Source: patient, family Mode of arrival: wheelchair Limitations: no limitations - History of Present Illness Initial comments: 86-year-old male with past medical history of mobitz type 1, coronary artery disease presents to the emergency department with nausea, vomiting, diarrhea since Monday night. Patient awoke in the middle of the night with nausea and vomiting. Denies any sick contacts with similar symptoms. He also has had urinary frequency and fatigue. He has a history of recurrent UTI and pro statitis. He denies any rectal pain. Denies any flank pain. No hematuria. reports that he has had a low-grade fever. Has not received any Motrin or Tylenol today. He denies any chest pain, shortness of breath. No cough. Denies black or bloody stools. No other alleviating, precipitating or modifying factors - Related Data Home Medications Medication Instructions Recorded Confirmed Atorvastatin [Lipitor] 40 mg PO HS 05/03/19 10/03/21 allopurinoL [Zyloprim] 150 mg PO HS 05/03/19 10/03/21 Aspirin 81 mg PO HS 10/03/21 10/03/21 Enalapril [Vasotec] 2.5 mg PO HS 10/03/21 10/03/21 Allergies Allergy/AdvReac Type Severity Reaction Status Date / Time No Known Allergies Allergy Verified 10/03/21 16:51 Review of Systems ROS Statement: Those systems with pertinent positive or pertinent negative responses have been documented in the HPI. ROS Other: All systems not noted in ROS Statement are negative. Past Medical History Past Medical History: Coronary Artery Disease (CAD) Additional Past Medical History / Comment(s): states "hx heart block" History of Any Multi-Drug Resistant Organisms: None Reported Past Surgical History: Heart Catheterization With Stent Additional Past Surgical History / Comment(s): Stovall's neuroma,varicose veins removed Past Anesthesia/Blood Transfusion Reactions: No Reported Reaction Date of Last Stent Placement:: "2013" Past Psychological History: No Psychological Hx Reported Smoking Status: Never smoker Past Alcohol Use History: Occasional Past Drug Use History: None Reported - Past Family History Brother(s) Family Medical History: Cancer Sister(s) Family Medical History: Cancer General Exam Limitations: no limitations General appearance: alert, in no apparent distress Head exam: Present: atraumatic, normocephalic, normal inspection Eye exam: Present: normal appearance, PERRL, EOMI. Absent: scleral icterus, conjunctival injection, periorbital swelling ENT exam: Present: normal exam, mucous membranes moist Neck exam: Present: normal inspection. Absent: tenderness, meningismus, lymphadenopathy Respiratory exam: Present: normal lung sounds bilaterally. Absent: respiratory distress, wheezes, rales, rhonchi, stridor Cardiovascular Exam: Present: bradycardia, irregular rhythm, normal heart sound s. Absent: systolic murmur, diastolic murmur, rubs, gallop, clicks GI/Abdominal exam: Present: soft, normal bowel sounds. Absent: distended, tenderness, guarding, rebound, rigid Extremities exam: Present: normal inspection, full ROM, normal capillary refill. Absent: tenderness, pedal edema, joint swelling, calf tenderness Back exam: Present: normal inspection Neurological exam: Present: alert, oriented X3, CN II-XII intact Psychiatric exam: Present: normal affect, normal mood Skin exam: Present: warm, dry, intact, normal color. Absent: rash Course Vital Signs 10/03/21 16:43 Temperature 98.7 F Pulse Rate 47 L Respiratory 18 Rate Blood Pressure 147/56 O2 Sat by Pulse 96 Oximetry EKG Findings - EKG Comments: EKG Findings:: EKG done at 1702 demonstrates a bradycardic rate - second degree wenckebach heart block. Rate of 43. QRS 92. QTC of 468. No acute ST segment elevations or depressions. EKG done at 1745 continues to demonstrate second- degree heart block with no acute ST segment elevations or depressions. Rate of 42. Procedures - Woodman Protocol (Time Out) Nurse: Pricilla Leung Medical Decision Making - Medical Decision Making Upon arrival patient is placed into room 15. A thorough history and physical exam was performed. IV access is established laboratories is a conducted. 12- lead EKG is performed which demonstrates a Mobitz type I heart block. Chest x- rays performed. CT the abdomen and pelvis is performed. Laboratory studies reviewed and demonstrated a white count of 12. Troponin 0.106. BNP 5690. Urinalysis is positive for greater than 182 white blood cells, occasional white blood cell clumps and red bacteria. Influenza, RSV ankle that are negative. Chest x-ray demonstrates no acute cardiopulmonary process. CT of the abdomen and pelvis demonstrates cystitis and cholelithiasis. Patient is reevaluated and continues to deny any chest pain. He is given an aspirin. Recommended admission in order to trend his troponins for which the patient does agree. He is given a dose of Levaquin. Spoke with Dr. Rae who agreed to admit the patient. Cardiology will be placed on consult. Patient taken to the floor in stable condition - Lab Data Result diagrams: 10/03/21 17:58 10/03/21 17:58 Lab Results 10/03/21 10/03/21 10/03/21 Range/Units 17:58 17:58 17:58 WBC 12.1 H (3.8-10.6) k/uL RBC 3.86 L (4.30-5.90) m/uL Hgb 13.1 (13.0-17.5) gm/dL Hct 40.0 (39.0-53.0) % MCV 103.6 H (80.0-100.0) fL MCH 34.0 (25.0-35.0) pg MCHC 32.8 (31.0-37.0) g/dL RDW 13.4 (11.5-15.5) % Plt Count 117 L (150-450) k/uL MPV 8.8 Neutrophils % 84 % Lymphocytes % 9 % Monocytes % 5 % Eosinophils % 0 % Basophils % 0 % Neutrophils # 10.2 H (1.3-7.7) k/uL Lymphocytes # 1.1 (1.0-4.8) k/uL Monocytes # 0.6 (0-1.0) k/uL Eosinophils # 0.0 (0-0.7) k/uL Basophils # 0.0 (0-0.2) k/uL Macrocytosis Slight PT (9.0-12.0) sec INR (<1.2) APTT (22.0-30.0) sec Sodium 138 (137-145) mmol/L Potassium 4.0 (3.5-5.1) mmol/L Chloride 104 (98-107) mmol/L Carbon Dioxide 24 (22-30) mmol/L Anion Gap 10 mmol/L BUN 20 (9-20) mg/dL Creatinine 1.15 (0.66-1.25) mg/dL Est GFR (CKD-EPI)AfAm 66 (>60 ml/min/1.73 sqM) Est GFR (CKD-EPI)NonAf 57 (>60 ml/min/1.73 sqM) Glucose 136 H (74-99) mg/dL Calcium 8.9 (8.4-10.2) mg/dL Magnesium 2.0 (1.6-2.3) mg/dL Total Bilirubin 2.0 H (0.2-1.3) mg/dL AST 20 (17-59) U/L ALT 14 (4-49) U/L Alkaline Phosphatase 57 (38-126) U/L Troponin I (0.000-0.034) ng/mL NT-Pro-B Natriuret Pep pg/mL Total Protein 6.8 (6.3-8.2) g/dL Albumin 3.9 (3.5-5.0) g/dL Lipase 17 L (23-300) U/L Urine Color Yellow Urine Appearance Cloudy (Clear) Urine pH 6.0 (5.0-8.0) Ur Specific Corona 1.020 (1.001-1.035) Urine Protein 1+ H (Negative) Urine Glucose (UA) Negative (Negative) Urine Ketones Negative (Negative) Urine Blood Trace H (Negative) Urine Nitrite Negative (Negative) Urine Bilirubin Negative (Negative) Urine Urobilinogen <2.0 (<2.0) mg/dL Ur Leukocyte Esterase Large H (Negative) Urine RBC 6 H (0-5) /hpf Urine WBC >182 H (0-5) /hpf Urine WBC Clumps Occasional H (None) /hpf Urine Bacteria Rare H (None) /hpf Urine Mucus Few H (None) /hpf Influenza Type A (PCR) (Not Detectd) Influenza Type B (PCR) (Not Detectd) RSV (PCR) (Not Detectd) SARS-CoV-2 (PCR) (Not Detectd) 10/03/21 10/03/21 10/03/21 Range/Units 17:58 17:58 17:58 WBC (3.8-10.6) k/uL RBC (4.30-5.90) m/uL Hgb (13.0-17.5) gm/dL Hct (39.0-53.0) % MCV (80.0-100.0) fL MCH (25.0-35.0) pg MCHC (31.0-37.0) g/dL RDW (11.5-15.5) % Plt Count (150-450) k/uL MPV Neutrophils % % Lymphocytes % % Monocytes % % Eosinophils % % Basophils % % Neutrophils # (1.3-7.7) k/uL Lymphocytes # (1.0-4.8) k/uL Monocytes # (0-1.0) k/uL Eosinophils # (0-0.7) k/uL Basophils # (0-0.2) k/uL Macrocytosis PT 10.9 (9.0-12.0) sec INR 1.0 (<1.2) APTT 25.3 (22.0-30.0) sec Sodium (137-145) mmol/L Potassium (3.5-5.1) mmol/L Chloride (98-107) mmol/L Carbon Dioxide (22-30) mmol/L Anion Gap mmol/L BUN (9-20) mg/dL Creatinine (0.66-1.25) mg/dL Est GFR (CKD-EPI)AfAm (>60 ml/min/1.73 sqM) Est GFR (CKD-EPI)NonAf (>60 ml/min/1.73 sqM) Glucose (74-99) mg/dL Calcium (8.4-10.2) mg/dL Magnesium (1.6-2.3) mg/dL Total Bilirubin (0.2-1.3) mg/dL AST (17-59) U/L ALT (4-49) U/L Alkaline Phosphatase (38-126) U/L Troponin I 0.106 H* (0.000-0.034) ng/mL NT-Pro-B Natriuret Pep 5690 pg/mL Total Protein (6.3-8.2) g/dL Albumin (3.5-5.0) g/dL Lipase (23-300) U/L Urine Color Urine Appearance (Clear) Urine pH (5.0-8.0) Ur Specific Corona (1.001-1.035) Urine Protein (Negative) Urine Glucose (UA) (Negative) Urine Ketones (Negative) Urine Blood (Negative) Urine Nitrite (Negative) Urine Bilirubin (Negative) Urine Urobilinogen (<2.0) mg/dL Ur Leukocyte Esterase (Negative) Urine RBC (0-5) /hpf Urine WBC (0-5) /hpf Urine WBC Clumps (None) /hpf Urine Bacteria (None) /hpf Urine Mucus (None) /hpf Influenza Type A (PCR) (Not Detectd) Influenza Type B (PCR) (Not Detectd) RSV (PCR) (Not Detectd) SARS-CoV-2 (PCR) (Not Detectd) 10/03/21 Range/Units 17:58 WBC (3.8-10.6) k/uL RBC (4.30-5.90) m/uL Hgb (13.0-17.5) gm/dL Hct (39.0-53.0) % MCV (80.0-100.0) fL MCH (25.0-35.0) pg MCHC (31.0-37.0) g/dL RDW (11.5-15.5) % Plt Count (150-450) k/uL MPV Neutrophils % % Lymphocytes % % Monocytes % % Eosinophils % % Basophils % % Neutrophils # (1.3-7.7) k/uL Lymphocytes # (1.0-4.8) k/uL Monocytes # (0-1.0) k/uL Eosinophils # (0-0.7) k/uL Basophils # (0-0.2) k/uL Macrocytosis PT (9.0-12.0) sec INR (<1.2) APTT (22.0-30.0) sec Sodium (137-145) mmol/L Potassium (3.5-5.1) mmol/L Chloride (98-107) mmol/L Carbon Dioxide (22-30) mmol/L Anion Gap mmol/L BUN (9-20) mg/dL Creatinine (0.66-1.25) mg/dL Est GFR (CKD-EPI)AfAm (>60 ml/min/1.73 sqM) Est GFR (CKD-EPI)NonAf (>60 ml/min/1.73 sqM) Glucose (74-99) mg/dL Calcium (8.4-10.2) mg/dL Magnesium (1.6-2.3) mg/dL Total Bilirubin (0.2-1.3) mg/dL AST (17-59) U/L ALT (4-49) U/L Alkaline Phosphatase (38-126) U/L Troponin I (0.000-0.034) ng/mL NT-Pro-B Natriuret Pep pg/mL Total Protein (6.3-8.2) g/dL Albumin (3.5-5.0) g/dL Lipase (23-300) U/L Urine Color Urine Appearance (Clear) Urine pH (5.0-8.0) Ur Specific Corona (1.001-1.035) Urine Protein (Negative) Urine Glucose (UA) (Negative) Urine Ketones (Negative) Urine Blood (Negative) Urine Nitrite (Negative) Urine Bilirubin (Negative) Urine Urobilinogen (<2.0) mg/dL Ur Leukocyte Esterase (Negative) Urine RBC (0-5) /hpf Urine WBC (0-5) /hpf Urine WBC Clumps (None) /hpf Urine Bacteria (None) /hpf Urine Mucus (None) /hpf Influenza Type A (PCR) Not Detected (Not Detectd) Influenza Type B (PCR) Not Detected (Not Detectd) RSV (PCR) Not Detected (Not Detectd) SARS-CoV-2 (PCR) Not Detected (Not Detectd) Disposition Clinical Impression: NSTEMI (non-ST elevated myocardial infarction), Wenckebach second degree AV block, UTI (urinary tract infection) Disposition: ADMITTED IP TO THIS [facility] Condition: Stable Is patient prescribed a controlled substance at d/c from ED?: No Time of Disposition: 20:45 Decision to Admit Reason: Admit from EC Decision Date: 10/03/21 Decision Time: 20:45
[2021-10-03] MEDS ORDERED: SODIUM CHLORIDE 0.9% 1,000 ML IV SCH (21:00)
[2021-10-03] MEDS ORDERED: ATORVASTATIN 40 MG TAB PO SCH (22:45)
[2021-10-03] MEDS ORDERED: allopurinoL 300 MG TAB PO SCH (22:45)
[2021-10-03 23:04] VITALS: BP 169/70; PULSE 56
[2021-10-04] MEDS ORDERED: ASPIRIN 81 MG PO SCH (21:00)
--- NOTE | 2021-10-13 10:18 | P.HPIM ---
History of Present Illness H&P Date: 10/13/21 This is an 86-year-old male patient who presented to ER with concerns of weakness fatigue nausea and vomiting. Patient was evaluated in the ER and was recommended for admission the patient left AMA. Patient left before I could physically examine him all history is obtained from medical record. According to medical record patient has a past medical history of coronary artery disease with previous stents and heart block. Chest x-ray was completed showing no acute cardiopulmonary disease, mild cardiomyopathy suspected hiatal hernia. CT of abdomen and pelvis completed showing no evidence of infectious process within the abdomen or pelvis cholelithiasis colonic diverticulosis bladder wall c ircumferential thickening could be due to underdistention correlate with UA for cystitis. As recommended per ER patient be admitted to monitor troponins and cardiology consult. Patient left AGAINST MEDICAL ADVICE prior to my ability to exam patient Past Medical History Past Medical History: Coronary Artery Disease (CAD) Additional Past Medical History / Comment(s): states "hx heart block" History of Any Multi-Drug Resistant Organisms: None Reported Past Surgical History: Heart Catheterization With Stent Additional Past Surgical History / Comment(s): Stovall's neuroma,varicose veins removed Past Anesthesia/Blood Transfusion Reactions: No Reported Reaction Date of Last Stent Placement:: "2013" Past Psychological History: No Psychological Hx Reported Smoking Status: Never smoker Past Alcohol Use History: Occasional Past Drug Use History: None Reported - Past Family History Brother(s) Family Medical History: Cancer Sister(s) Family Medical History: Cancer Medications and Allergies Home Medications Medication Instructions Recorded Confirmed Type Atorvastatin [Lipitor] 40 mg PO HS 05/03/19 10/03/21 History allopurinoL [Zyloprim] 150 mg PO HS 05/03/19 10/03/21 History Aspirin 81 mg PO HS 10/03/21 10/03/21 History Enalapril [Vasotec] 2.5 mg PO HS 10/03/21 10/03/21 History Allergies Allergy/AdvReac Type Severity Reaction Status Date / Time No Known Allergies Allergy Verified 10/03/21 16:51 Results CBC & Chem 7: 10/03/21 17:58 10/03/21 17:58 Thrombosis Risk Factor Assmnt - Choose All That Apply Any of the Below Risk Factors Present?: No Other Risk Factors: Yes Each Risk Factor Represents 3 Points: Age 75 years or older Other congenital or acquired thrombophilia - If yes, enter type in comment: No Thrombosis Risk Factor Assessment Total Risk Factor Score: 3 Thrombosis Risk Factor Assessment Level: Moderate Risk
== END 2021-10-03 23:45 | disposition left against medical advice (07) | DRG 948 ==
LOC: EC 16:40 → 3SCARD 20:51
PROVIDERS: ADMIT Internal Medicine; ATTEND Internal Medicine
DX: R77.8 Other specified abnormalities of plasma proteins (principal); I25.10 Atherosclerotic heart disease of native coronary artery without angina pectoris; I44.1 Atrioventricular block, second degree; K80.20 Calculus of gallbladder without cholecystitis without obstruction; N30.90 Cystitis, unspecified without hematuria; Z79.82 Long term (current) use of aspirin; Z87.440 Personal history of urinary (tract) infections; R19.7 Diarrhea, unspecified; Z20.822 Contact with and (suspected) exposure to COVID-19; Z95.5 Presence of coronary angioplasty implant and graft; G57.60 Lesion of plantar nerve, unspecified lower limb; Z79.899 Other long term (current) drug therapy; Z53.29 Procedure and treatment not carried out because of patient's decision for other reasons
CPT/HCPCS: 36415; 71046; 74177; 80053; 81001; 83690; 83735; 83880; 84484; 85025; 85610; 85730; 87086; 87636; 93005; 96361; 96374; 99285

== ENCOUNTER → 2022-01-04 | Outpatient (CLI) | payer MEDICARE, BC ==
--- NOTE | 2022-01-04 10:56 | CT ---
EXAMINATION TYPE: CT sinus wo con DATE OF EXAM: 01/04/2022 COMPARISON: none HISTORY: tooth in R maxillary sinus from tooth extraction [address] DLP: 612.[address] of the paranasal sinuses was performed in the axial and coronal planes. Bone and soft tissue settings are submitted. The paranasal sinuses demonstrate normal aeration and development. There is moderate mucosal thickening involving the right maxillary sinus. Noted within the maxillary sinus is a 7.5 x 5.6 mm hyperdensity could reflect a tooth. Osseous cortical defects are noted to inv olve the right maxilla at several locations.There is osseous defect noted at the base of the right ma xillary sinus could reflect sequela of dental caries and previous osteomyelitis. Mild mucosal thicken ing left maxillary sinus. There is partial obstruction of the right ostiomeatal unit. The left ostiomeatal unit is patent. Inci dental left-sided middle turbinate el bullosa is noted. The nasal septum is deviated from left to right. IMPRESSION: 1.Noted within the maxillary sinus is a 7.5 x 5.6 mm hyperdensity could reflect a tooth. Osseous arabella ical defects are noted to involve the right maxilla at several locations.There is osseous defect note d at the base of the right maxillary sinus could reflect sequela of dental caries and previous osteom yelitis.
== END | disposition home or self-care (01) ==
LOC: RADCTMAIN 10:12
PROVIDERS: ATTEND Otolaryngology
DX: J32.0 Chronic maxillary sinusitis (principal); K02.9 Dental caries, unspecified
CPT/HCPCS: 70486

== ENCOUNTER 2022-01-19 10:14 | Day surgery (SDC) | payer MEDICARE, BC ==
[2022-01-18 14:54] VITALS: BMI 25.8
[~2022-01-19 10:14] MED LIST changes: -ACETAMINOPHEN TAB 500 MG TAB PO ONE; -GABAPENTIN 300 MG CAP PO ONE; -HYDROmorphone 0.5 MG/0.5 ML SYRINGE IVP PRN; -LACTATED RINGERS 1,000 ML IV SCH; -LIDOCAINE 1% 20 ML VIAL (10MG/ML) FOR IV START INTRADERMA PRN; -MELOXICAM 7.5 MG TAB PO ONE; -ONDANSETRON 4 MG/2 ML VIAL IVP ONE; -ROPIVACAINE 246.25 MG, EPINEPHrine 0.5 MG, KETOROLAC 30 MG, cloNIDine HCL/PF 80 MCG, WA... MISCELLANE ONE; -TRANEXAMIC ACID 1,000 MG in SODIUM CHLORIDE 0.9% 100 ML IVPB ONE; +ceFAZolin 1 GM in SODIUM CHLORIDE 0.9% IRRIG BTL 250 ML IRRIGATION PRN
[2022-01-19] MEDS ORDERED: SODIUM CHLORIDE 0.9% 1,000 ML IV ONE (10:30)
[2022-01-19 11:00] LABS: Basophils % (A) 1 %; Eosinophils # (A) 0.1 k/uL (0-0.7); Eosinophils % (A) 2 %; HCT 46.1 % (39.0-53.0); HGB 14.6 gm/dL (13.0-17.5); Lymphocytes # (A) 2.2 k/uL (1.0-4.8); Lymphocytes % (A) 36 %; MCH 32.9 pg (25.0-35.0); MCHC 31.6 g/dL (31.0-37.0); MCV 103.9 fL (80.0-100.0); Macrocytosis Slight; Mean Platelet Volume 8.3; Monocytes # (A) 0.4 k/uL (0-1.0); Monocytes % (A) 6 %; Neutrophils # (A) 3.3 k/uL (1.3-7.7); Neutrophils % (A) 53 %; Platelet Count 194 k/uL (150-450); RBC 4.44 m/uL (4.30-5.90); RDW 13.7 % (11.5-15.5); WBC 6.2 k/uL (3.8-10.6)
[2022-01-19 11:10] LABS: Calcium 9.4 mg/dL (8.4-10.2); Potassium 5.1 mmol/L (3.5-5.1)
[2022-01-19] MEDS ORDERED: fentaNYL (PF) 50 MCG/ML 2 ML AMP ONE (11:51)
[2022-01-19] MEDS ORDERED: HEPARIN SODIUM 1,000 UN/ML (10ML VL) ONE (11:56)
[2022-01-19] MEDS ORDERED: MIDAZOLAM 2 MG/2 ML VIAL IV ONE (12:19)
[2022-01-19] MEDS ORDERED: LIDOCAINE 1% INJ 10MG/ML (30 ML VIAL-PF) SQ ONE (12:19)
[2022-01-19] MEDS ORDERED: fentaNYL (PF) 50 MCG/ML 2 ML AMP IV ONE ×2 (12:28)
[2022-01-19] MEDS ORDERED: ACETAMINOPHEN TAB 325 MG TAB PO PRN (13:53)
--- NOTE | 2022-01-19 14:05 | P.PCN ---
Description of Procedure: Procedure(s): Dual Chamber Permanent Pacemaker Implantation; Cardiac Fluoroscopy Indications: Sick sinus syndrome with symptomatic sinus bradycardia with heart rates in the low 30s with symptoms of dizziness and lightheadedness Preprocedure Diagnosis: Sick sinus syndrome with symptomatic bradycardia Postprocedure Diagnosis: Sick sinus syndrome with symptomatic bradycardia Procedure Details: The risks, benefits, complications, treatment options, and expected outcomes were discussed with the patient. The patient and/or family concurred with the proposed plan, giving informed consent. Patient was prepped and draped in the usual strict sterile fashion. After the antibiotic was completely infused, 20 mL of 1% lidocaine was infiltrated into the area just medial to the left deltopectoral groove. Using a micropuncture needle technique with fluoroscopic guidance two access points were obtained into the axillary vein. 2 wires were advanced under to access fluoroscopic guidance in In the right atrium. Using a #15 scalpel, an incision was made. The incision was extended to the pre-pectoral fascia using blunt dissection. Using cautery and dissection a pocket was made. A guidewire was advanced to the heart underfluoroscopic guidance. Sheath was advanced over the guidewire. A guidewire was retained, and dilator was removed. A pacemaker lead was advanced to the heart underfluoroscopic guidance. The sheath was peeled away. The lead was fixated to the right ventricular apical septum. Appropriate sensing and thresholds were obtained. No diaphragmatic pacing occurred at 10 V and 1.5 ms. As second sheath was advanced over the guidewire. The dilator and guidewire were removed. A pacemaker lead was advanced to the heart underfluoroscopic guidance. The sheath was peeled away. The lead was fixated to the right atrial appendage. Appropriate sensing and thresholds were obtained. No diaphragmatic pacing occurred at 10 V and 1.5 ms. Both were active leads and both the leads were screwed and and secured to the underlying muscle using 2 separate 0 silk sutures. The leads were again reviewed under fluoroscopy and sensitivities and thresholds were obtained and rechecked. All numbers were appropriate. I had to go back and redo the atrial lead. Excellent injury was noted with good thresholds and sensitivities A left pre-pectoral pocket was fashioned.The pocket was irrigated with antibiotic and I left an antibiotic sponge in the pocket for 15 minutes. The leads were attached to the generator. The system was placed in the pocket. The pacemaker and lead system were visualized under fluoroscopy. Appropriate redundancy/slacken the leads were noted. The pins of the leads were beyond the set screws. The pulse generator was also secured to the underlying muscle using a 0 silk suture. Hemostasis was reverified. The pocket was then closed with 2.0 and 3.0 Vicryl. Steri-Strips, a gauze dressing, and operative site were placed. 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 model ASSUIRTY model 2272 serial number [id number] the atrial lead was tendril STS 2088 TC serial number [id number]. The ventricular lead was tendril STS 2088 TC serial number [id number] The pacemaker was set at a lower rate of 50 high rate of 110 BPM with a AV paced delay of 200 and sensed delay of 180 ms. The device was set in a DDD mode The atrial threshold was 0.5 V at 0.4 ms P waves are more than 5.0. The lead impedance was 430 ohms. The ventricular threshold was 0.5 works at 0.4 ms, R waves were 6.0 mV, lead impedance was 580 ohms Estimated Blood Loss: Less than 50 ml. Complications: None; patient tolerated the procedure well. Moderate conscious sedation time was 100 minutes. Patient was administered Versed and fentanyl. Oxygen saturation hemodynamics and EKG were monitored closely Disposition: PACU - hemodynamically stable. Condition: Stable. No complications. We'll do a chest x-ray today. Patient will be discharged in 24 hours after device check and to review chest x-ray in a.m.
[2022-01-19] MEDS: SODIUM CHLORIDE 0.9% 1,000 ML IV SCH (15:02)
--- NOTE | 2022-01-19 15:52 | XR ---
EXAMINATION TYPE: XR chest 1V portable DATE OF EXAM: 01/19/2022 COMPARISON: 10/03/2021 HISTORY: Lead placement check TECHNIQUE: Single frontal view of the chest is obtained. FINDINGS: There is no focal air space opacity, pleural effusion, or pneumothorax seen. The cardiac silhouette size is within normal limits. The osseous structures are intact. Double lead pacemaker with the proximal lead overlying the right atrium and distal lead overlying the right ventricle. No sizable pneumothorax. Heart is enlarged with atherosclerotic change and underlyi ng COPD suspected. Arthropathy of the right shoulder. Mild prominence of the left superior perihilar region likely reflects rotation. IMPRESSION: Pacemaker placement with no postprocedural complication identified.
[2022-01-19] MEDS ORDERED: ATORVASTATIN 40 MG TAB PO SCH (21:00)
[2022-01-19] MEDS ORDERED: allopurinoL 300 MG TAB PO SCH (21:00)
[2022-01-19] MEDS ORDERED: lisinopriL 5 MG TAB PO SCH (21:00)
[2022-01-20] MEDS: SODIUM CHLORIDE 0.9% 1,000 ML IV SCH (04:00)
[2022-01-20 07:51] VITALS: BP 144/86; PULSE 55; RESP 18; TEMP 97.8
[2022-01-20] MEDS ORDERED: ASPIRIN 81 MG PO SCH (09:00)
--- NOTE | 2022-01-20 09:03 | XR ---
EXAMINATION TYPE: XR chest 2V DATE OF EXAM: 01/20/2022 COMPARISON: 01/19/2022 TECHNIQUE: PA and lateral views submitted. HISTORY: Lead placement FINDINGS: The lungs are clear and there is no pneumothorax, pleural effusion, or focal pneumonia. Cardiac dev ice noted. Approximately overlies the right atrium and the distal lead overlies the right ventricle. The shoulder. Heart size stable. Atherosclerotic change aorta. Mild hypertrophic change of the spine. Mild hyperinflation correlate for COPD. IMPRESSION: 1. Cardiac device appears in good position with no postprocedural complication identified.
[2022-01-20 09:15] LABS: African American GFR (CKD) 77.5 (60.0-200.0); Albumin 4.1 g/dL (3.8-4.9); Albumin/Globulin Ratio 1.86 (1.60-3.17); Anion Gap 10.5 mmol/L (10.00-18.00); BUN/Creat Ratio 20.9 Ratio (12.00-20.00); Blood Urea Nitrogen 20.9 mg/dL (9.0-27.0); Calcium 9.1 mg/dL (8.7-10.3); Carbon Dioxide 24.5 mmol/L (20.0-27.5); Globulin 2.2 g/dL (1.6-3.3); Non-African American GFR(CKD) 66.9 (60.0-200.0); Potassium 4.2 mmol/L (3.5-5.5); Total Bilirubin 1.2 mg/dL (0.30-1.20); Total Protein 6.3 g/dL (6.2-8.2)
[2022-01-20 09:50] LABS: HCT 40.4 % (39.6-50.0); HGB 13.3 g/dL (13.0-17.0); MCH 32.6 pg (27.0-32.0); MCHC 32.9 g/dL (32.0-37.0); Mean Platelet Volume 11.1 fL (9.5-12.2); NRBC Per 100 WBC 0 /100 WBCS (0.0-0.0); Platelet Count 141 X 10*3/uL (140-440); RBC 4.08 X 10*6/uL (4.40-5.60); RDW 13.6 % (11.5-14.5); WBC 5.45 X 10*3/uL (4.50-10.00)
--- NOTE | 2022-01-20 18:15 | DS ---
DISCHARGE SUMMARY DATE OF ADMISSION: 01/19/2022. DATE OF DISCHARGE: 01/20/2022. DIAGNOSIS: 1. Sick sinus syndrome with symptomatic bradycardia. 2. Coronary artery disease with previous percutaneous coronary intervention. 3. Hyperlipidemia. PROCEDURES PERFORMED: Dual-chamber permanent pacemaker from left infraclavicular approach. Dr. King was brought in electively for a permanent pacemaker that was performed uneventfully. Post-procedure chest x-ray and this morning again 2 views of chest x-ray and the device check were normal. He is asymptomatic. Blood pressure 140/70, pulse rate is 52 per minute. No JVD. S1, S2 with a short systolic murmur. Lungs are clear. Abdomen is soft, nontender. Lower extremities reveal normal pulses. No edema. Central nervous system is normal. The pacemaker site is clean and dry with some small drainage that is old. Site looks good. The patient will be discharged today and I will see him in the office on January 28 at 9:30 a.m. Discharge instructions regarding activity, diet and the usage of sling were given. MMODL / IJN: [id number] /
== END 2022-01-20 11:20 | disposition home or self-care (01) ==
LOC: CATHEP 10:14 → 6NMEDSUR 13:50 → CATHEP 01-20 11:20
PROVIDERS: ATTEND Internal Medicine Interventional Cardiology
DX: I97.191 Other postprocedural cardiac functional disturbances following other surgery (principal); R00.1 Bradycardia, unspecified; I49.5 Sick sinus syndrome; I25.10 Atherosclerotic heart disease of native coronary artery without angina pectoris; I10 Essential (primary) hypertension; E78.5 Hyperlipidemia, unspecified; Z20.822 Contact with and (suspected) exposure to COVID-19; Z72.0 Tobacco use; E78.00 Pure hypercholesterolemia, unspecified; Z79.899 Other long term (current) drug therapy
CPT/HCPCS: 33208; 80053; 80048; 85025; 85027; 87635; 71045; 71046; C1892; C1898; C1769; C1785; J2250; J0690 ×2; J2001; J3010

== ENCOUNTER → 2022-07-05 | Outpatient (CLI) | payer MEDICARE, BC ==
--- NOTE | 2022-07-05 15:13 | XR ---
EXAMINATION TYPE: XR chest 2V DATE OF EXAM: 07/05/2022 COMPARISON: 01/20/2022 TECHNIQUE: PA and lateral views submitted. HISTORY: Cough FINDINGS: The lungs are clear and there is no pneumothorax, pleural effusion, or focal pneumonia. Cardiac dev ice seen. Atherosclerotic changes of aorta heart size normal. Mild hyperinflation. Degenerative atkinson es of the spine. Elevated right hemidiaphragm stable IMPRESSION: 1. No acute process. Correlate for mild COPD.
== END | disposition home or self-care (01) ==
LOC: RADXRMAIN 14:59
PROVIDERS: ATTEND Internal Medicine
DX: J44.9 Chronic obstructive pulmonary disease, unspecified (principal); R05.9 Cough, unspecified
CPT/HCPCS: 71046

== ENCOUNTER → 2022-11-21 | Outpatient (CLI) | payer MEDICARE, BC ==
--- NOTE | 2022-11-21 13:33 | CT ---
EXAMINATION TYPE: CT brain wo con DATE OF EXAM: 11/21/2022 COMPARISON: None HISTORY: Memory loss. CT DLP: [address] of the brain was performed. The ventricles, basal cisterns and sulci overlying the cerebral convexities demonstrate mild to moder ate enlargement. There is no evidence for intracranial hemorrhage or sulcal effacement. There is decreased attenuation about the periventricular white matter and deep white matter of both c erebral hemispheres, compatible with chronic small vessel ischemia. Differential diagnosis does inclu de demyelination. No mass effects are seen.No midline shift. Osseous calvarium is intact. If symptoms persist consider MRI. IMPRESSION: 1. Age related atrophic and chronic small vessel ischemic change without acute intracranial process s een at this time.
== END | disposition home or self-care (01) ==
LOC: RADCTMAIN 12:41
PROVIDERS: ATTEND Psychiatry & Neurology Neurology
DX: I67.82 Cerebral ischemia (principal); G31.9 Degenerative disease of nervous system, unspecified; R41.3 Other amnesia
CPT/HCPCS: 70450

== ENCOUNTER → 2023-06-14 | Outpatient (CLI) | payer MEDICARE, BC ==
[2023-06-14 15:37] LABS: African American GFR (CKD) 65 (>60 ml/min/1.73 sqM); Blood Urea Nitrogen 27 mg/dL (9-20); Non-African American GFR(CKD) 57 (>60 ml/min/1.73 sqM)
--- NOTE | 2023-06-15 09:06 | CT ---
EXAMINATION TYPE: CT abdomen pelvis w con DATE OF EXAM: 06/14/2023 COMPARISON: 10/03/2021 INDICATION: abdominal pain and bloating DLP: 1023.7 mGycm, Automated exposure control for dose reduction was used. CONTRAST: 80cc mL of Isovue 300. Study performed with Oral Contrast TECHNIQUE: Axial images were obtained from above the diaphragm to the pubic rami in the axial plane a t 5 mm thick sections. Reconstructed images are reviewed on the computer in the coronal plane. FINDINGS: Limited CT sections are obtained the lung bases. The lung bases are clear. Coronary artery calcific ations present. CT ABDOMEN: Liver: Normal Spleen: Multiple scattered calcified granulomata within the spleen. A splenule is Tail of the pancreas. Pancreas: Normal Adrenal glands: The adrenal glands are normal. Gallbladder: Cholelithiasis. Kidneys: No masses are evident. No hydronephrosis is present. Small cortical renal cysts are presen t. Largest is in the upper pole right kidney measuring 1.6 cm. Delayed images were obtained through the kidneys, which remain unremarkable. Aorta: Vascular calcification is within the aorta. Inferior vena cava: Normal. CT PELVIS: Loops of bowel within the abdomen and pelvis are normal. There are loops of bowel which are incom pletely distended or lack oral contrast limiting their evaluation. Appendix: Not identified. No dilated tubular structure or inflammatory change is evident. Urinary bladder: Normal. Genitourinary structures: Prostate is prominent. Osseous structures: No suspicious lytic or sclerotic lesions. IMPRESSION: 1. Cholelithiasis. 2. No suspicious acute changes
== END | disposition home or self-care (01) ==
LOC: RADCTMAIN 14:40
PROVIDERS: ATTEND Internal Medicine
DX: R60.0 Localized edema (principal); K80.20 Calculus of gallbladder without cholecystitis without obstruction
CPT/HCPCS: 82565; 84520; 74177; 36415; Q9967